=== PATIENT | male | born 2000 | race Hispanic/Latino ===

== ENCOUNTER 2023-07-04 18:33 | Emergency (ER) | payer SELFPAY ==
[2023-07-04] MEDS ORDERED: Ibuprofen 800 MG TAB ONE (18:52)
[2023-07-04] MEDS ORDERED: Penicillin V Potassium 250 MG TAB PO SCH (19:15)
== END 2023-07-04 19:08 | disposition home or self-care (01) ==
LOC: NAV ERS 18:33
DX: J02.9 Acute pharyngitis, unspecified (principal); F17.210 Nicotine dependence, cigarettes, uncomplicated
CPT/HCPCS: 99283